=== PATIENT | female | born 1945 | race Caucasian/White ===

== ENCOUNTER → 2016-09-16 | Outpatient (CLI) | payer MEDICARE, OTHER ==
[2016-09-16 15:00] LABS: Basophils # (A) 0.1 k/uL (0-0.2); Basophils % (A) 1 %; CH 28.9; CHCM 32.1; Eosinophils # (A) 0.5 k/uL (0-0.7); Eosinophils % (A) 5 %; HCT 44.3 % (34.0-46.0); HDW 2.35; HGB 14.2 gm/dL (11.4-16.0); Luc # (Auto) 0.35; Luc % (Auto) 4; Lymphocytes # (A) 2.9 k/uL (1.0-4.8); Lymphocytes % (A) 32 %; MCH 28.9 pg (25.0-35.0); MCHC 31.9 g/dL (31.0-37.0); MCV 90.6 fL (80.0-100.0); Mean Platelet Volume 6.7; Monocytes # (A) 0.6 k/uL (0-1.0); Monocytes % (A) 6 %; Neutrophils # (A) 4.9 k/uL (1.3-7.7); Neutrophils % (A) 53 %; RBC 4.89 m/uL (3.80-5.40); RDW 14.1 % (11.5-15.5); WBC 9.2 k/uL (3.8-10.6); WBC (Perox) 9.64
[2016-09-16 15:11] LABS: ALT 14 U/L (9-52); AST 25 U/L (14-36); Alkaline Phosphatase 81 U/L (38-126); Anion Gap 11 mmol/L; Blood Urea Nitrogen 12 mg/dL (7-17); Calcium 9.7 mg/dL (8.4-10.2); Carbon Dioxide 25 mmol/L (22-30); Chloride 104 mmol/L (98-107); Glucose 99 mg/dL (74-99); Non-African American GFR(MDRD) >60 (>60 ml/min/1.73 sqM); Potassium 4.3 mmol/L (3.5-5.1); Sodium 140 mmol/L (137-145); Total Bilirubin 0.7 mg/dL (0.2-1.3); Total Protein 7.3 g/dL (6.3-8.2)
--- NOTE | 2016-09-16 15:35 | XR ---
EXAMINATION TYPE: XR chest 2V DATE OF EXAM: 09/16/2016 2:59 PM COMPARISON: 02/26/2016 TECHNIQUE: PA and lateral views submitted. HISTORY: Shortness of breath FINDINGS: There is a large mass in the right upper lobe suspicious for malignancy and measuring 3.7 cm. Right h ilar adenopathy also suspected. Emphysematous changes are noted. No pneumothorax. No pleural effusion. Compression deformities are se en in the vertebral column. Vertebroplasty noted at multiple levels. Pathologic compression deformiti es not excluded. IMPRESSION: 1. COPD with large right upper lobe mass suspicious for malignancy.
== END | disposition home or self-care (01) ==
LOC: LABWHC1 14:39
PROVIDERS: ATTEND Internal Medicine Cardiovascular Disease
DX: J44.9 Chronic obstructive pulmonary disease, unspecified (principal); R91.8 Other nonspecific abnormal finding of lung field; R06.02 Shortness of breath; R07.9 Chest pain, unspecified
CPT/HCPCS: 36415; 71020; 80053; 83880; 85025

== ENCOUNTER → 2016-11-03 | Day surgery (SDC) | payer MEDICARE, OTHER ==
[2016-10-30 09:53] VITALS: BMI 26.9
[~2016-11-03] MED LIST: ALBUTEROL NEB (CONC) 2.5 MG/0.5 ML INHALATION ONE; ATROPINE SULFATE 0.4 MG/ML 1 ML VIAL IM ONE; LACTATED RINGERS 1,000 ML IV ONE; LACTATED RINGERS 1,000 ML IV SCH; LIDOCAINE 2% (PF) 20 MG/ML 10ML INHALATION ONE; Pre Op ABX Message 1 EACH MISC MISCELLANE ONE
== END ==
LOC: ORWHC2ENDO 09:27
PROVIDERS: ATTEND Internal Medicine Critical Care Medicine
DX: Z53.8 Procedure and treatment not carried out for other reasons (principal)

== ENCOUNTER 2016-12-16 10:50 | Day surgery (SDC) | payer MEDICARE, OTHER ==
[2016-12-09 14:41] VITALS: BMI 26.0
[~2016-12-16 10:50] MED LIST changes: +LIDOCAINE 1% 20 ML VIAL (10MG/ML) FOR IV START INTRADERMA PRN
[2016-12-16] MEDS ORDERED: fentaNYL (PF) 50 MCG/ML 2 ML AMP IV ONE (12:45)
[2016-12-16] MEDS ORDERED: NEOSTIGMINE 1 MG/ML 10 ML VIAL ONE (13:13)
[2016-12-16] MEDS ORDERED: PROPOFOL 10 MG/ML 20 ML VIAL IV ONE (13:13)
[2016-12-16] MEDS ORDERED: SUCCINYLCHOLINE CHLORIDE 100 MG/5 ML SYR IV ONE (13:13)
[2016-12-16] MEDS ORDERED: GLYCOPYRROLATE 0.2 MG/ML 2 ML VIAL ONE (13:13)
[2016-12-16] MEDS ORDERED: ROCURONIUM BROMIDE 10 MG/ML 10 ML VIAL IV ONE (13:13)
[2016-12-16] MEDS ORDERED: MIDAZOLAM 2 MG/2 ML VIAL ONE (13:13)
[2016-12-16] MEDS ORDERED: ONDANSETRON 4 MG/2 ML VIAL IVP ONE (14:10)
[2016-12-16 14:13] VITALS: TEMP 97.7
[2016-12-16 14:40] VITALS: RESP 18
--- NOTE | 2016-12-16 14:50 | XR ---
EXAMINATION TYPE: XR chest 1V portable DATE OF EXAM: 12/16/2016 COMPARISON: Prior chest x-ray one September 2016 HISTORY: Status post biopsy right upper lobe TECHNIQUE: Single frontal view of the chest is obtained. FINDINGS: Airspace disease is present in the right upper lobe. No evident pneumothorax or pleural ef fusion. Underlying lung nodule is somewhat secured in the right upper lobe. Mediastinal silhouette, p ulmonary vascularity and john are stable. IMPRESSION: No evident complication status post lung biopsy.
--- NOTE | 2016-12-16 14:54 | CT ---
EXAMINATION TYPE: CT Chest verónica Payne Protocol DATE OF EXAM: 12/16/2016 COMPARISON: Prior CT chest 02/26/2016 HISTORY: Lung mass. Navigational bronch. CT DLP: 588 mGycm Automated exposure control for dose reduction was used. Helical imaging through the chest. FINDINGS: CT scan was performed for navigational bronchoscopy. Right upper lobe lung mass shows interval increa se in size measuring approximately 3.9 x 3.2 x 2.9 cm with spiculated margins, extension into the lat eral pleural surface. Some interstitial changes are present. Vague area of increased attenuation in t he left upper lobe is not significantly changed. Nodular density in the left costophrenic angle is st able. Emphysematous changes are present within the lungs. There is extensive mediastinal adenopathy. Coronary artery calcifications are present. No endobronchial lesion, pleural or pericardial effusion. IMPRESSION: Findings suggestive of bronchogenic carcinoma. Additional findings above. Exam performed for navigational bronchoscopy.
[2016-12-16 15:12] VITALS: BP 101/64; PULSE 67
--- NOTE | 2016-12-17 06:17 | PCN ---
DATE OF PROCEDURE: PROCEDURE: Navigational bronchoscopy. PREOPERATIVE DIAGNOSIS: Rule out lung cancer. POSTOPERATIVE DIAGNOSIS: Rule out lung cancer, a lesion right upper lobe The patient's procedure was done in the operating room under general anesthesia. The anesthesiologist was Dr. Sierra. The NURSE LDR was Diogenes Templeton. There was informed consent. There was universal timeout. After the patient was adequately sedated and under the effects of general anesthesia, intubated and on the ventilator, the bronchoscope was inserted through the bronchoscope adapter connected to the endotracheal tube. We used [employer] navigational bronchoscopy system to localize the lesion. We did preoperative napping with the electromagnetic navigational bronchoscope. We isolated the lesion to the right upper lobe. Once we were able to locate the lesion with Veran assist, we did numerous biopsies of the right upper lobe lesion. We did needle biopsies of the right upper lobe lesion as well as brushes and washes. We had Dr. Das there to look at the slides. She confirmed the diagnosis of non-small cell lung cancer. The patient tolerated the procedure well. The patient will be recovered. There were no immediate complications. A chest x-ray will be done postoperatively. The patient should be able to be discharged home. I did speak to the daughters both of which were present in the recovery area and I did given them the diagnosis. There are going to wait until I see the patient in the office to tell their mother of the diagnosis.
== END 2016-12-16 15:35 | disposition home or self-care (01) ==
LOC: ORWHC2ENDO 10:50
PROVIDERS: ATTEND Internal Medicine Critical Care Medicine
DX: C34.11 Malignant neoplasm of upper lobe, right bronchus or lung (principal); R91.8 Other nonspecific abnormal finding of lung field; I50.9 Heart failure, unspecified; E78.5 Hyperlipidemia, unspecified; J44.9 Chronic obstructive pulmonary disease, unspecified; K21.9 Gastro-esophageal reflux disease without esophagitis; Z79.82 Long term (current) use of aspirin; Z79.891 Long term (current) use of opiate analgesic; Z79.899 Other long term (current) drug therapy; Z88.6 Allergy status to analgesic agent; Z88.1 Allergy status to other antibiotic agents; Z88.5 Allergy status to narcotic agent; Z88.2 Allergy status to sulfonamides
CPT/HCPCS: 88104; 88108; 88305; 88173; 88342; 88341; 71010; 71250; 31627; 31629; 31623; J2250; J2710; J2405; J3010; J0330; J2704; 31624; 31625

== ENCOUNTER → 2017-03-27 | Outpatient (CLI) | payer MEDICARE, OTHER ==
--- NOTE | 2017-03-30 16:03 | PE ---
Nuclear medicine PET/CT HISTORY: Lung carcinoma Patient received 14.6 mCi F-18 FDG intravenously. Delayed scanning was performed from the skull base to the mid thighs. Localization and attenuation correction CT scan was also performed. Exam is correl ated to prior chest CT dated 12/16/2016, abdomen pelvis CT 05/22/2015 Neck and chest: Supraclavicular adenopathy is present on the left axial image 2 shows associated hype rmetabolic uptake, SUV is 5.7. There are abnormal nodes posterior to the sternocleidomastoid muscle o n the left which are enlarged, SUV 4.2. Adenopathy present at the level of the thoracic inlet the foster perior mediastinum, retrocaval pretracheal region and prevascular nodes, right hilar and subcarinal n odes, SUV range is 5-10, patient's mass in the right upper lobe is again noted, SUV is 11. There is n o pleural or pericardial effusion. The heart is enlarged. There are coronary artery calcifications. S ome ill-defined areas of increased attenuation present in the left lung are present. Abdomen pelvis: No suspicious hypermetabolic uptake or adenopathy. No evident liver mass or adrenal m ass. Osseous structures are unremarkable IMPRESSION: Metastatic disease as described.
== END | disposition home or self-care (01) ==
LOC: RADPETMAIN 07:54
PROVIDERS: ATTEND Internal Medicine Critical Care Medicine
DX: C79.9 Secondary malignant neoplasm of unspecified site (principal); C34.90 Malignant neoplasm of unspecified part of unspecified bronchus or lung; R91.1 Solitary pulmonary nodule
CPT/HCPCS: 78815; A9552